=== PATIENT | female | born 1990 | race Two or more races ===

== ENCOUNTER 2016-12-25 19:33 | Emergency (ER) | payer MEDICAID ==
[~2016-12-25] VITALS: Ht 157.5 cm; Wt 65.3 kg
[2016-12-25 23:24] LABS: BASOPHIL % 0.6 % (0-2); PLATELET COUNT 184 x10^3mcL (130-400); RED CELL DISTRIBUTION WIDTH 13.6 % (11.5-14.5)
[2016-12-26 00:14] LABS: UA SPECIFIC GRAVITY 1.025 (1.005-1.035); microscopic required? YES; urine erythrocyte 3+ (NEGATIVE)
[2016-12-26 01:18] VITALS: BP 105/64
== END 2016-12-26 01:18 | disposition home or self-care (01) ==
LOC: ED 19:33
PROVIDERS: Emergency Medicine
DX: O20.0 Threatened abortion (principal); O23.42 Unspecified infection of urinary tract in pregnancy, second trimester; Z3A.14 14 weeks gestation of pregnancy
CPT/HCPCS: Q0092